=== PATIENT | female | born 1995 | race African-American/Black ===

== ENCOUNTER 2017-05-25 17:59 | Emergency (ER) | payer MEDICAID ==
[~2017-05-25] VITALS: Ht 182.9 cm; Wt 71.2 kg
[2017-05-25] MEDS ORDERED: SODIUM CHLORIDE 0.9% 1,000 ML IV ONE (18:53)
[2017-05-25] MEDS ORDERED: ONDANSETRON 2MG/ML, 2ML ONE (18:58)
[2017-05-25] MEDS ORDERED: MORPHINE SULFATE 4 MG/ML, 1ML ONE (18:58)
[2017-05-25] MEDS ORDERED: ONDANSETRON 2MG/ML, 2ML IVPush ONE (19:00)
[2017-05-25] MEDS ORDERED: SODIUM CHLORIDE 0.9% 1,000ML IVBOLUS ONE (19:00)
[2017-05-25] MEDS ORDERED: MORPHINE SULFATE 4 MG/ML, 1ML IVPush PRN (19:00)
[2017-05-25 19:26] LABS: BLOOD UREA NITROGEN 11 mg/dL (7-18)
[2017-05-25 19:55] VITALS: BP 104/58
== END 2017-05-25 21:01 | disposition home or self-care (01) ==
LOC: ED 20:35
DX: Z32.01 Encounter for pregnancy test, result positive (principal); J45.909 Unspecified asthma, uncomplicated
CPT/HCPCS: 36415; 76830; 80048; 81003; 82040; 84702; 84703; 85025; 96361; 96374; 96375; 99285; J2405; J7030

== ENCOUNTER 2017-05-27 08:08 | Emergency (ER) | payer MEDICAID ==
[~2017-05-27] VITALS: Ht 180.3 cm; Wt 71.4 kg
[2017-05-27 08:09] VITALS: BP 102/64
[2017-05-27 08:59] LABS: BLOOD UREA NITROGEN 12 mg/dL (7-18)
[2017-05-27 09:05] LABS: ASPARTATE AMINO TRANSFERASE 11 U/L (15-37)
== END 2017-05-27 10:08 | disposition home or self-care (01) ==
LOC: ED 10:02
DX: Z32.01 Encounter for pregnancy test, result positive (principal); E83.51 Hypocalcemia; R10.84 Generalized abdominal pain; J45.909 Unspecified asthma, uncomplicated
CPT/HCPCS: 36415; 80053; 81003; 83690; 84702; 85025; 99284

== ENCOUNTER 2017-06-16 20:36 | Emergency (ER) | payer MEDICAID ==
[~2017-06-16] VITALS: Ht 182.9 cm; Wt 72.4 kg
[2017-06-16 20:39] VITALS: BP 120/72
[2017-06-16] MEDS ORDERED: SODIUM CHLORIDE 0.9% 1,000ML IVBOLUS ONE (22:00)
[2017-06-16] MEDS ORDERED: METOCLOPRAMIDE 5 MG/ML, 2ML IVPush ONE (22:00)
[2017-06-16] MEDS ORDERED: DIPHENHYDRAMINE 50 MG/ML, 1ML IVPush ONE (22:00)
[2017-06-16] MEDS ORDERED: DIPHENHYDRAMINE 50 MG/ML, 1ML ONE (22:47)
[2017-06-16] MEDS ORDERED: METOCLOPRAMIDE 5 MG/ML, 2ML ONE (22:47)
[2017-06-16 23:06] LABS: ASPARTATE AMINO TRANSFERASE 9 U/L (15-37); BLOOD UREA NITROGEN 7 mg/dL (7-18)
== END 2017-06-17 00:16 | disposition home or self-care (01) ==
LOC: ED 21:08
DX: O99.281 Endocrine, nutritional and metabolic diseases complicating pregnancy, first trimester (principal); O23.41 Unspecified infection of urinary tract in pregnancy, first trimester; Z3A.01 Less than 8 weeks gestation of pregnancy
CPT/HCPCS: 36415; 76801; 80053; 81001; 84702; 85025; 96361; 96374; 96375; 99285; J1200; J2765; J7030